=== PATIENT | female | born 1995 | race Two or more races ===

== ENCOUNTER 2022-11-13 20:45 | Emergency (ER) | payer BC ==
[2022-11-13] MEDS ORDERED: Acetaminophen 325 MG TAB ONE (21:53)
[2022-11-13] MEDS ORDERED: Ibuprofen 200 MG TAB ONE (21:53)
== END 2022-11-13 21:58 | disposition home or self-care (01) ==
LOC: ERS 20:45
DX: S60.222A Contusion of left hand, initial encounter (principal); W23.0XXA Caught, crushed, jammed, or pinched between moving objects, initial encounter